=== PATIENT | male | born 1975 | race Caucasian/White ===

== ENCOUNTER 2022-12-02 01:45 | Emergency (ER) | payer OTHER ==
--- OUTSIDE RECORDS SUMMARY | 2022-12-02 01:48 | XMS REPORT | Continuity of Care Document ---
:1975 Author Organization [facility] t Address [address] [place] [address] [place] [id number] Care Team Providers Name Role Phone Unavailable Unavailable Unavailable Problems This patient has no known problems. Allergies, Adverse Reactions, Alerts This patient has no known allergies or adverse reactions. Medications This patient has no known medications. Procedures This patient has no known procedures. Results This patient has no known results.
--- NOTE | 2022-12-02 02:51 | ER ---
Nurse's Notes [facility] Name: Krystian Stinson Age: 47 yrs Sex: Male : 1975 Arrival Date: 12/02/2022 Time: 01:45 Bed 7 Private MD: Diagnosis: Nondisplaced fracture of base of second metacarpal bone, left hand, initial encounter for closed fracture Presentation: 12/02 01:57 Chief complaint: Patient states: RIGHT HAND PAIN AND SWELLING FOR A FEW WEEKS NOW. rv Coronavirus screen: Vaccine status: Patient reports receiving the 2nd dose of the covid vaccine. Ebola Screen: Patient negative for fever greater than or equal to 101.5 degrees Fahrenheit, and additional compatible Ebola Virus Disease symptoms Patient denies exposure to infectious person. Patient denies travel to an Ebola-affected area in the 21 days before illness onset. Initial Sepsis Screen: Does the patient meet any 2 criteria? No. Patient's initial sepsis screen is negative. Does the patient have a suspected source of infection? No. Patient's initial sepsis screen is negative. Risk Assessment: Do you want to hurt yourself or someone else? Patient reports no desire to harm self or others. Onset of symptoms is unknown. 01:57 Method Of Arrival: Ambulatory rv 01:57 Acuity: DANTE 4 rv Triage Assessment: 01:58 General: Appears comfortable, Behavior is calm, cooperative. Pain: Complains of pain in rv right hand. Neuro: Level of Consciousness is awake, alert, obeys commands, Oriented to person, place, time, situation. Cardiovascular: Capillary refill < 3 seconds. Respiratory: Airway is patent Respiratory effort is even, unlabored. Historical: - Home Meds: :58 [place] 10-325 mg Oral tab 1 tab 2 times per day for Pain [Active]; rv - PMHx: 01:58 Chronic pain; rv - Immunization history:: Adult Immunizations up to date. - Social history:: Smoking status: unknown. Screenin:59 [facility] ED Fall Risk Assessment (Adult) History of falling in the last 3 months, rv including since admission No falls in past 3 months (0 pts) Confusion or Disorientation No (0 pts) Intoxicated or Sedated No (0 pts) Impaired Gait No (0 pts) Mobility Assist Device Used No (0 pt) Altered Elimination No (0 pt) Score/Fall Risk Level 0 - 2 = Low Risk Oriented to surroundings, Maintained a safe environment, Educated pt \T\ family on fall prevention, incl call for assistance when getting out of bed, Assessed \T\ reinforced patient's understanding of fall precautions, Provided non-skid footwear, Hourly rounding (assess needs \T\ fall precautionary measures) done, Used ambulatory aids as needed (educated on \T\ assisted with), Used gait belt as appropriate. Abuse screen: Denies threats or abuse. Denies injuries from another. Nutritional screening: No deficits noted. Tuberculosis screening: No symptoms or risk factors identified. Assessment: 01:59 Musculoskeletal: Swelling present in right hand. rv Vital Signs: 01:57 BP 154 / 77; Pulse 79; Resp 17; Temp 98; Pulse Ox 98% ; Weight 80.74 kg; Height 5 ft. 8 rv in. ; 01:57 Body Mass Index 27.06 (80.74 kg, 172.72 cm) rv ED Course: 01:49 Patient arrived in ED. ja2 01:50 Ayo Edward DO is Attending Physician. ms3 01:57 Donnell Waggoner, RADHA is Primary Nurse. rv 01:58 Triage completed. rv 01:58 Arm band placed on right wrist. rv 01:59 Patient has correct armband on for positive identification. Call light in reach. Side rv rails up X 1. Client placed on continuous cardiac and pulse oximetry monitoring. NIBP monitoring applied. 01:59 Patient did not have IV access during this emergency room visit. rv 02:19 Hand Right 3 View XRAY In Process Unspecified. EDMS 03:08 No provider procedures requiring assistance completed. Orthoglass splint: rv radioulnargutter, [place]. 03:09 Herb Adams MD is Referral Physician. ms3 Administered Medications: No medications were administered Medication: 02:00 VIS not applicable for this client. rv Outcome: 02:51 Discharge ordered by . ms3 03:08 Discharged to home ambulatory. rv 03:08 Condition: good 03:08 Discharge instructions given to patient, Instructed on discharge instructions, follow up and referral plans. Demonstrated understanding of instructions, follow-up care, splint care. 03:11 Patient left the ED. rv Signatures: Dispatcher [employer] EDMS Donnell Waggoner RN RN rv Ayo Edward DO DO ms3 Shruthi Stubbs2
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
[2022-12-02 03:16] VITALS: BP 154/77; TEMP 98; O2SAT 98
--- NOTE | 2022-12-03 10:39 | RAD REPORT ---
EXAM DESCRIPTION: RAD - Hand Right 3 View - 12/02/2022 2:17 am CLINICAL HISTORY: The patient is 47 years old and is Male; PAIN [facility] MAIN TECHNIQUE: Frontal, lateral and oblique views of the right hand. COMPARISON: None FINDINGS: BONES/JOINTS: Nondisplaced comminuted fracture through the right second metacarpal neck, with dorsal apex angulation at the fracture site. No other fractures. No subluxation or dislocation. SOFT TISSUES: Mild soft tissue swelling about the radial aspect of the mid hand and second digit. No radiopaque foreign body. IMPRESSION: Nondisplaced comminuted fracture through the right second metacarpal neck. Electronically signed by: Ishaan Sunshine MD 12/02/2022 2:34 AM CDT Due to temporary technical issues with the PACS/Fluency reporting system, reports are being signed by the in house radiologists without review as a courtesy to insure prompt reporting. The interpreting radiologist is fully responsible for the content of the report.
== END 2022-12-02 03:11 | disposition home or self-care (01) ==
LOC: ER 01:45
DX: S62.340A Nondisplaced fracture of base of second metacarpal bone, right hand, initial encounter for closed fracture (principal)